=== PATIENT | male | born 1950 | race Caucasian/White ===

== ENCOUNTER → 2017-02-09 | Outpatient (CLI) | payer MEDICARE, OTHER ==
[~2017-02-09] MED LIST: AMIO200T2 PO; APIX2.5T PO; ASPI-983 PO; ASPI-999 PO; ATOR40TA70 PO; COENZYME Q10 PO; GARLIC PO; GINKGO BILOBA PO; ISOS30TA3 PO; KORE100C PO; MANGOSTEEN PO; METO-272 PO; MULT-1029 PO; SAW PALMETTO PO; SENN-109 PO; VITA150T PO; VITAMIN E PO
[2017-02-09 10:03] LABS: BASOPHILS # (AUTO) 0.1 10^3/uL (0.0-0.1); BASOPHILS % (AUTO) 1 % (0-10); EOSINOPHILS # (AUTO) 0.1 10^3/uL (0.0-0.3); EOSINOPHILS % (AUTO) 1 % (0-10); LYMPHOCYTES # (AUTO) 1.2 X 10^3 (1.0-4.0); LYMPHOCYTES % (AUTO) 14 % (12-44); MEAN CORPUSCULAR HEMOGLOBIN 29 PG (25-34); MEAN CORPUSCULAR HGB CONC 32 G/DL (32-36); MEAN CORPUSCULAR VOLUME 90 FL (80-99); MEAN PLATELET VOLUME 9.9 FL (7.4-10.4); MONOCYTES # (AUTO) 0.9 X 10^3 (0.0-1.0); MONOCYTES % (AUTO) 10 % (0-12); NEUTROPHILS # (AUTO) 6.5 X 10^3 (1.8-7.8); NEUTROPHILS % (AUTO) 75 % (42-75); PLATELET COUNT 219 10^3/uL (130-400); RED BLOOD COUNT 4.59 10^6/uL (4.35-5.85); RED CELL DISTRIBUTION WIDTH 14.9 % (10.0-14.5); WHITE BLOOD COUNT 8.7 10^3/uL (4.3-11.0)
[2017-02-09 10:24] LABS: BILIRUBIN,TOTAL 0.5 MG/DL (0.1-1.0); CALCIUM 8.8 MG/DL (8.5-10.1); CREATININE SERUM 1.47 MG/DL (0.60-1.30); MAGNESIUM 2.3 MG/DL (1.8-2.4); POTASSIUM 3.4 MMOL/L (3.6-5.0); TOTAL PROTEIN 6.9 G/DL (6.4-8.2)
[2017-02-09 10:45] LABS: THYROID STIMULATING HORMONE 0.44 UIU/ML (0.35-4.94)
== END ==
LOC: LAB 09:43
PROVIDERS: ATTEND Internal Medicine Cardiovascular Disease
DX: I50.33 Acute on chronic diastolic (congestive) heart failure (principal); I25.10 Atherosclerotic heart disease of native coronary artery without angina pectoris; I10 Essential (primary) hypertension; I48.0 Paroxysmal atrial fibrillation; M79.89 Other specified soft tissue disorders
CPT/HCPCS: 36415; 80053; 83735; 84443; 85025

== ENCOUNTER → 2017-03-10 | Outpatient (CLI) | payer OTHER ==
[2017-03-10 10:44] LABS: CALCIUM 9.4 MG/DL (8.5-10.1); CREATININE SERUM 1.46 MG/DL (0.60-1.30); MAGNESIUM 2.4 MG/DL (1.8-2.4); POTASSIUM 3.4 MMOL/L (3.6-5.0)
== END ==
LOC: LAB 10:02
PROVIDERS: ATTEND Internal Medicine Cardiovascular Disease
DX: I25.10 Atherosclerotic heart disease of native coronary artery without angina pectoris (principal); I10 Essential (primary) hypertension; I48.0 Paroxysmal atrial fibrillation; R06.02 Shortness of breath
CPT/HCPCS: 36415; 80048; 83735

== ENCOUNTER → 2017-03-25 | Outpatient (CLI) | payer MEDICARE, OTHER ==
[2017-03-25 10:34] LABS: CALCIUM 9.7 MG/DL (8.5-10.1); CREATININE SERUM 1.96 MG/DL (0.60-1.30); MAGNESIUM 2.6 MG/DL (1.8-2.4); POTASSIUM 4.1 MMOL/L (3.6-5.0)
== END ==
LOC: LAB 09:51
PROVIDERS: ATTEND Nurse Practitioner Family
DX: I11.0 Hypertensive heart disease with heart failure (principal); I50.32 Chronic diastolic (congestive) heart failure; E87.6 Hypokalemia
CPT/HCPCS: 36415; 80048; 83735

== ENCOUNTER → 2017-04-17 | Outpatient (CLI) | payer OTHER ==
[2017-04-17 09:44] LABS: CALCIUM 9.4 MG/DL (8.5-10.1); CREATININE SERUM 1.79 MG/DL (0.60-1.30); ICTERUS -0.3 (0-1.9); POTASSIUM 4.4 MMOL/L (3.6-5.0)
== END ==
LOC: LAB 09:06
PROVIDERS: ATTEND Nurse Practitioner Family
DX: I25.10 Atherosclerotic heart disease of native coronary artery without angina pectoris (principal); I73.9 Peripheral vascular disease, unspecified; I50.32 Chronic diastolic (congestive) heart failure; I11.0 Hypertensive heart disease with heart failure; M79.89 Other specified soft tissue disorders
CPT/HCPCS: 36415; 80048; 83735

== ENCOUNTER → 2017-04-21 | Outpatient (CLI) | payer OTHER | LOC: RAD 14:39 | PROVIDERS: ATTEND Nurse Practitioner Family | DX: I73.9 Peripheral vascular disease, unspecified (principal); I25.10 Atherosclerotic heart disease of native coronary artery without angina pectoris; I50.32 Chronic diastolic (congestive) heart failure; M79.89 Other specified soft tissue disorders; I10 Essential (primary) hypertension | CPT/HCPCS: 93923 ==

== ENCOUNTER → 2017-05-11 | Outpatient (CLI) | payer MEDICARE ==
[2017-05-11 10:02] LABS: CALCIUM 9.5 MG/DL (8.5-10.1); CREATININE SERUM 1.49 MG/DL (0.60-1.30); MAGNESIUM 2.3 MG/DL (1.8-2.4); POTASSIUM 3.5 MMOL/L (3.6-5.0)
== END ==
LOC: LAB 09:17
PROVIDERS: ATTEND Internal Medicine Cardiovascular Disease
DX: I25.10 Atherosclerotic heart disease of native coronary artery without angina pectoris (principal); E83.41 Hypermagnesemia; M79.89 Other specified soft tissue disorders
CPT/HCPCS: 36415; 80048; 83735

== ENCOUNTER → 2017-06-17 | Outpatient (CLI) | payer MEDICARE ==
[2017-06-17 11:01] LABS: CALCIUM 9.3 MG/DL (8.5-10.1); CREATININE SERUM 1.3 MG/DL (0.60-1.30); MAGNESIUM 2.2 MG/DL (1.8-2.4); POTASSIUM 3.7 MMOL/L (3.6-5.0)
== END ==
LOC: LAB 10:10
PROVIDERS: ATTEND Internal Medicine Cardiovascular Disease
DX: I25.10 Atherosclerotic heart disease of native coronary artery without angina pectoris (principal); I50.32 Chronic diastolic (congestive) heart failure; I10 Essential (primary) hypertension; M79.89 Other specified soft tissue disorders
CPT/HCPCS: 36415; 80048; 83735

== ENCOUNTER → 2017-10-23 | Outpatient (CLI) | payer MEDICARE ==
[~2017-10-23] MED LIST changes: -METO-272 PO; +METO-370 PO
[2017-10-23 10:20] LABS: BASOPHILS # (AUTO) 0.1 10^3/uL (0.0-0.1); BASOPHILS % (AUTO) 1 % (0-10); EOSINOPHILS # (AUTO) 0.2 10^3/uL (0.0-0.3); EOSINOPHILS % (AUTO) 2 % (0-10); LYMPHOCYTES # (AUTO) 1.5 X 10^3 (1.0-4.0); LYMPHOCYTES % (AUTO) 16 % (12-44); MEAN CORPUSCULAR HEMOGLOBIN 29 PG (25-34); MEAN CORPUSCULAR HGB CONC 32 G/DL (32-36); MEAN CORPUSCULAR VOLUME 91 FL (80-99); MONOCYTES # (AUTO) 0.8 X 10^3 (0.0-1.0); MONOCYTES % (AUTO) 9 % (0-12); NEUTROPHILS # (AUTO) 6.4 X 10^3 (1.8-7.8); NEUTROPHILS % (AUTO) 71 % (42-75); PLATELET COUNT 209 10^3/uL (130-400); RED BLOOD COUNT 4.96 10^6/uL (4.35-5.85); RED CELL DISTRIBUTION WIDTH 14.7 % (10.0-14.5)
[2017-10-23 10:34] LABS: ALANINE AMINOTRANSFERASE 20 U/L (0-55); ALBUMIN 4.1 GM/DL (3.2-4.5); ANION GAP 10 MMOL/L (5-14); ASPARTATE AMINO TRANSFERASE 20 U/L (5-34); BILIRUBIN,TOTAL 0.5 MG/DL (0.1-1.0); BLOOD UREA NITROGEN 13 MG/DL (7-18); BUN/CREATININE RATIO 11; CALCIUM 9.4 MG/DL (8.5-10.1); CARBON DIOXIDE 27 MMOL/L (21-32); CHLORIDE 108 MMOL/L (98-107); CHOLESTEROL 116 MG/DL (< 200); DIRECT LDL 49 MG/DL (1-129); GFR ESTIMATED > 60; GLUCOSE 107 MG/DL (70-105); MAGNESIUM 2.2 MG/DL (1.8-2.4); POTASSIUM 3.6 MMOL/L (3.6-5.0); SODIUM 145 MMOL/L (135-145); TRIGLYCERIDES 142 MG/DL (<150); VLDL CHOLESTEROL 28 MG/DL (5-40)
[2017-10-23 10:54] LABS: THYROID STIMULATING HORMONE 0.42 UIU/ML (0.35-4.94)
--- NOTE | 2017-10-23 11:28 | Diagnostic Imaging Report ---
EXAMINATION: PA and lateral views of the chest. INDICATION: Hypertension. Smoking. FINDINGS: The lungs are clear. There is slight pleural thickening suggested in the lateral aspect of the inferior left hemithorax. The heart size is at the upper limits of normal. There is suggestion of a fanbeoet-pd-evick hiatal hernia. No effusion or pneumothorax. The mediastinum and lori appear unremarkable. IMPRESSION: Suggestion of [id number]-[id number]-udspb hiatal hernia. This can be confirmed with the CT chest if needed. Dictated by: Dictated on workstation # [id number]
== END ==
LOC: LAB 09:36
PROVIDERS: ATTEND Internal Medicine Cardiovascular Disease
DX: I25.10 Atherosclerotic heart disease of native coronary artery without angina pectoris (principal); I50.32 Chronic diastolic (congestive) heart failure; I11.0 Hypertensive heart disease with heart failure; I48.0 Paroxysmal atrial fibrillation; E66.8 Other obesity; Z87.891 Personal history of nicotine dependence
CPT/HCPCS: 36415; 71020; 80053; 80061; 83735; 84443; 85025

== ENCOUNTER → 2017-12-08 | Outpatient (CLI) | payer MEDICARE ==
--- NOTE | 2017-12-08 13:21 | Diagnostic Imaging Report ---
INDICATION: Hematuria. FINDINGS: The right kidney is small 6.9 x 2.3 x 2.9 cm. It shows no hydronephrosis and shows no appreciable solid or cystic mass. A right ureteral jet when the bladder was surveilled with color Doppler is not appreciated. The left kidney measures 12.6 cm, normal in size, cortical thickness, and echotexture. Its ureter is confirmed patent with Doppler evaluation of the bladder. IMPRESSION: Small right kidney, unobstructed and normal left kidney. Normal appearance of the bladder. Dictated by: Dictated on workstation # [id number]
== END ==
LOC: RAD 12:29
PROVIDERS: ATTEND Nurse Practitioner Community Health
DX: N27.0 Small kidney, unilateral (principal)
CPT/HCPCS: 76770

== ENCOUNTER 2017-12-24 07:03 | Outpatient (CLI) | payer MEDICARE ==
[~2017-12-24] VITALS: Ht 170.2 cm; Wt 99.1 kg
[2017-12-24] MEDS ORDERED: DILT240C53 PO (10:14)
[2017-12-24] MEDS ORDERED: SENN-1 PO (10:14)
[2017-12-24] MEDS ORDERED: POTA10TA10 PO (10:14)
[2017-12-24] MEDS ORDERED: FURO40TA4 PO (10:14)
[2017-12-24] MEDS ORDERED: ATOR20TA66 PO (10:14)
[2017-12-24] MEDS ORDERED: RUTI1TAB PO (10:14)
== END 2017-12-24 10:31 ==
LOC: PREOP 07:03
PROVIDERS: ATTEND Urology
DX: Z01.818 Encounter for other preprocedural examination (principal); N20.0 Calculus of kidney

== ENCOUNTER 2017-12-30 06:21 | Day surgery (SDC) | payer MEDICARE ==
[~2017-12-30] VITALS: Ht 170.2 cm; Wt 99.1 kg
[~2017-12-30 06:21] MED LIST changes: +ATOR20TA66 PO; +DILT240C53 PO; +FURO40TA4 PO; +POTA10TA10 PO; +RUTI1TAB PO; +SENN-1 PO
--- OUTSIDE RECORDS SUMMARY | 2017-12-30 06:24 | XMS REPORT ---
Author Author ARABELLA SHER [facility] Address [address] [place] [address] Care Team Providers Care Site Controller Name Role Phone ARABELLA SHER Unavailable PROBLEMS Type Condition ICD9-CM Code QZS35-TC Code Onset Dates Condition Status SNOMED Code Problem Slow transit constipation K59.01 Active 29499077 Problem Essential hypertension I10 Active 67951933 Problem Chronic atrial fibrillation I48.2 Active 784425123 Problem Tricuspid valve insufficiency, unspecified etiology I07.1 Active 481632957 Problem Mixed hyperlipidemia E78.2 Active 713750301 ALLERGIES Unknown Allergies SOCIAL HISTORY No smoking Hx information available PLAN OF CARE VITAL SIGNS MEDICATIONS Medication Instructions Dosage Frequency Start Date End Date Duration Status Linzess 145 MCG Orally Once a day 1 capsule 24h Dec, Active RESULTS No Results PROCEDURES No Known procedures IMMUNIZATIONS No Known Immunizations
--- OUTSIDE RECORDS SUMMARY | 2017-12-30 06:25 | XMS REPORT ---
Author Author ARABELLA SHER [facility] Address [address] [place] [address] Care Team Providers Care Professor Of French Name Role Phone ARABELLA SHER Unavailable PROBLEMS Type Condition ICD9-CM Code CEF91-DY Code Onset Dates Condition Status SNOMED Code Problem Slow transit constipation K59.01 Active 41287140 Problem Essential hypertension I10 Active 49070099 Problem Chronic atrial fibrillation I48.2 Active 424574758 Problem Tricuspid valve insufficiency, unspecified etiology I07.1 Active 262946948 Problem Mixed hyperlipidemia E78.2 Active 239731044 ALLERGIES Substance Reaction Event Type Date Status N.K.D.A. Unknown Non Drug Allergy Nov, Unknown SOCIAL HISTORY No smoking Hx information available PLAN OF CARE Activity Details Follow Up prn, Call about results with Ulises Reason: VITAL SIGNS Height 67 in 2016-11-11 Weight 227 lbs 2016-11-11 Temperature 98.0 degrees Fahrenheit 2016-11-11 Heart Rate 78 bpm 2016-11-11 Respiratory Rate 20 2016-11-11 BMI 35.55 kg/m2 2016-11-11 Blood pressure systolic 148 mmHg 2016-11-11 Blood pressure diastolic 80 mmHg 2016-11-11 MEDICATIONS Medication Instructions Dosage Frequency Start Date End Date Duration Status Aspir-Low 81 MG Orally Once a day 1 tablet 24h Active Amiodarone HCl 200 mg Orally Once a day 1 tablet 24h Active Bactrim DS 800-160 MG Orally Twice a day 1 tablet 12h Nov,Nov 10 day(s) Active Isosorbide Mononitrate CR 30 MG Orally Once a day 1 tablet 24h Active Furosemide 40 MG Orally Once a day 1 tablet 24h Active Eliquis 2.5 MG Active Atorvastatin Calcium 40 mg Orally Once a day 1 tablet 24h Active Amlodipine Besylate 10MG TAKE ONE TABLET BY MOUTH ONCE DAILY 30 Active RESULTS No Results PROCEDURES Procedure Date Ordered Related Diagnosis Body Site [facility] VISIT ESTABLISHED PATIENT Nov 11, 2016 Office Visit, Est Pt., Level 3 Nov 11, 2016 IMMUNIZATIONS No Known Immunizations
--- OUTSIDE RECORDS SUMMARY | 2017-12-30 06:25 | XMS REPORT ---
Author Author ARABELLA SHER Organization [employer] Address Unknown Phone Unavailable Care Team Providers Care Machinist Job Setter Name Role Phone ARABELLA SHER CP Unavailable Allergies No Known Allergies Problems No Known Problems Medications Medication Code System Code Instructions Start Date End Date Status Dosage Aspir-Low [facility] [address]-51 81 MG Orally Once a day 1 tablet Perindopril Arg-Amlodipine [facility] [address]-01 10 mg Orally Once a day 1 tablet Amiodarone HCl [facility] [address]-82 200 mg Orally Once a day 1 tablet Atorvastatin Calcium [facility] [address]-78 40 mg Orally Once a day 1 tablet Clopidogrel Bisulfate [facility] [address]-32 75 MG Orally Once a day 1 tablet Isosorbide Mononitrate CR [facility] [address]-37 30 MG Orally Once a day 1 tablet Results No Known Results Summary Purpose [employer] Submission
[2017-12-30] MEDS ORDERED: LACTATED RINGERS 1,000 ML IV PRN (07:10)
[2017-12-30] MEDS ORDERED: cefTRIAXone INJECTION 1,000 MG in NS (IVPB) 50 ML IV ONE (07:15)
[2017-12-30] MEDS ORDERED: CATHETER FLUSH 10 ML SYR IV PRN (07:15)
[2017-12-30] MEDS ORDERED: cefTRIAXone 1 GM/NS 50 ML IVPB IV ONE ×2 (07:15)
--- NOTE | 2017-12-30 07:22 | Progress Note-Pre Operative ---
Pre-Operative Progress Note H&P Reviewed The H&P was reviewed, patient examined and no changes noted. Date Seen by Provider: Dec 30, 2017 Time Seen by Provider: 07:22 Date H&P Reviewed: Dec 30, 2017 Time H&P Reviewed: 07:22 Pre-Operative Diagnosis: LT PROXIMAL URETERAL AND BILATERAL RENAL STONES DARRIAN DANIEL MD Dec 30, 2017 7:22 am
--- NOTE | 2017-12-30 07:23 | Progress Note-Post Operative ---
Post-Operative Progess Note Surgeon (s)/Border Police (s) Surgeon DARRIAN DANIEL MD Border Police: N/A Pre-Operative Diagnosis LT PROXIMAL URETERAL AND BILATERAL RENAL STONES Post-Operative Diagnosis SAME Procedure & Operative Findings Date of Procedure 12/30/17 Procedure Performed/Findings LT ESWL Anesthesia Type GENERAL Estimated Blood Loss Estimated blood loss (mL): N/A Specimens/Packing Specimens Removed N/A Packing: N/A DARRIAN DANIEL MD Dec 30, 2017 7:23 am
--- NOTE | 2017-12-30 07:25 | Discharge Inst-Urology ---
Discharge Inst-Urology Discharge Medications New, Converted, or Re-newed RX: RX on Chart Patient Instructions/Follow Up Plan Please make appointment to been seen in office Thursday 01/11, KUB prior to it KUB on way home Post ESWL instructions Increase oral fluids for 48 hours and then as needed. Diet and Activity as tolerated. If questions or concerns contact your physician Or seek help at emergency department. DARRIAN DANIEL MD Dec 30, 2017 7:25 am
--- NOTE | 2017-12-30 07:42 | Diagnostic Imaging Report ---
INDICATION: Nephrolithiasis KUB at 7:24 AM There are several opacities projecting over both kidneys consistent with calculi. Largest of these is in the region of left UPJ which measures 16 x 8 mm. The bowel gas pattern is normal. IMPRESSION: Bilateral nephrolithiasis. Largest stone is at the left UPJ. Dictated by: Dictated on workstation # [id number]
[2017-12-30 07:51] VITALS: BP 156/75
[2017-12-30] MEDS ORDERED: LIDOCAINE PF 2% 5 ML (XYLOCAINE) VIAL ONE (08:13)
[2017-12-30] MEDS ORDERED: fentaNYL INJECTION 100 MCG/2 ML AMP ONE (08:13)
[2017-12-30] MEDS ORDERED: ONDANSETRON 4 MG/2 ML (SDV) Z0FRAN ONE (08:13)
[2017-12-30] MEDS ORDERED: SEVOFLURANE (ULTANE) 15 ML INHAL SOLN ONE (08:13)
[2017-12-30] MEDS ORDERED: proPOfol 200 MG/20 ML (DIPRIVAN) VIAL IV ONE (08:13)
[2017-12-30] MEDS ORDERED: DEXAMETHASONE 10 MG/ML (DECADRON) 1 ML VIAL ONE (08:13)
[2017-12-30] MEDS ORDERED: MIDAZOLAM 2 MG/2 ML (VERSED) VIAL ONE (08:14)
[2017-12-30] MEDS ORDERED: FUROSEMIDE 40 MG/4 ML INJ (LASIX) ONE (09:09)
[2017-12-30] MEDS ORDERED: KETOROLAC 30 MG/ML VIAL ONE (09:09)
[2017-12-30] MEDS ORDERED: ONDANSETRON 4 MG/2 ML (SDV) Z0FRAN IVP PRN (09:15)
[2017-12-30] MEDS ORDERED: morphine INJ 10 MG/ML 1ML (SYR OR VIAL) IVP PRN (09:15)
[2017-12-30 10:05] VITALS: BP 137/76
[2017-12-30] MEDS ORDERED: NITR-65 PO (10:27)
[2017-12-30] MEDS ORDERED: TAMS0.4C98 PO (10:27)
[2017-12-30] MEDS ORDERED: HYDR-3875 PO (10:27)
[2017-12-30 10:35] VITALS: BP 139/80
--- NOTE | 2017-12-30 10:40 | Anesthesia-General Post-Op ---
General Patient Condition Mental Status/LOC: Same as Preop Cardiovascular: Satisfactory Nausea/Vomiting: Absent Respiratory: Satisfactory Pain: Controlled Complications: Absent Post Op Complications Complications None Follow Up Care/Instructions Patient Instructions None needed. Anesthesia/Patient Condition Patient Condition Patient is doing well, no complaints, stable vital signs, no apparent adverse anesthesia problems. No complications reported per nursing. GIOVANA NULL CRNA Dec 30, 2017 10:40
[2017-12-30 11:05] VITALS: BP 146/87
--- NOTE | 2017-12-30 11:19 | Diagnostic Imaging Report ---
INDICATION: Status post ESWL. COMPARISON: 12/30/2017 FINDINGS: Single supine radiographic view of the abdomen was obtained status post ESWL. The large calculus seen at the left UPJ on the prior exam shows interval fragmentation. Multiple small fragmented calculi are also seen extending into the left renal pelvis and inferior pole of the left kidney. Additional renal calculi are also seen, bilaterally. No unexpected radiopaque foreign bodies are seen. Small bowel loops are nondistended. IMPRESSION: 1. Multiple fragmented calculi are now noted within the left renal pelvis extending into the inferior pole calyx consistent with interval ESWL. 2. Additional bilateral nephrolithiasis. Dictated by: Dictated on workstation # [id number]
[2017-12-30 11:20] VITALS: BP 146/87
[2017-12-30 11:36] VITALS: BP 139/80
--- NOTE | 2017-12-30 13:37 | OPERATIVE REPORT ---
DATE OF SERVICE: 12/30/2017 PREOPERATIVE DIAGNOSES: 1. Left proximal ureteral stone. 2. Bilateral renal stones. POSTOPERATIVE DIAGNOSES: 1. Left proximal ureteral stone. 2. Bilateral renal stones. OPERATION PERFORMED: ESWL left ureteral proximal stone. SURGEON: Martir Daniel MD. ANESTHESIA: General. COMPLICATIONS: None. DESCRIPTION OF PROCEDURE: Under satisfactory general anesthesia, the patient in supine position on the ESWL table, the left proximal ureteral stone was localized. Shocks were delivered at a kV of 6, 3000 shocks seemed to have fragmented the stone nicely. The patient received 40 mg of Lasix and 30 mg of Toradol IV at the end of the procedure. He tolerated the procedure and anesthesia well and was sent to recovery room in stable condition. Job ID: [id number] DocumentID: [id number] Dictated Date: 12/30/2017 08:55:41 Clubhouse Attendant Date: 12/30/2017 13:37:15 Dictated By: MARTIR DANIEL MD
== END 2017-12-30 11:20 | disposition home or self-care (01) ==
LOC: SDC 06:21
PROVIDERS: ATTEND Urology
DX: N20.1 Calculus of ureter (principal); N20.0 Calculus of kidney; Z11.2 Encounter for screening for other bacterial diseases; I25.10 Atherosclerotic heart disease of native coronary artery without angina pectoris; I50.9 Heart failure, unspecified; I11.0 Hypertensive heart disease with heart failure; I48.0 Paroxysmal atrial fibrillation; E78.00 Pure hypercholesterolemia, unspecified; E78.5 Hyperlipidemia, unspecified; I73.9 Peripheral vascular disease, unspecified; Z79.82 Long term (current) use of aspirin; Z79.01 Long term (current) use of anticoagulants; Z87.891 Personal history of nicotine dependence; F32.9 Major depressive disorder, single episode, unspecified; F41.9 Anxiety disorder, unspecified; Z79.899 Other long term (current) drug therapy
CPT/HCPCS: 74018; 87081; 93005

== ENCOUNTER → 2018-01-04 | Outpatient (CLI) | payer MEDICARE ==
[~2018-01-04] MED LIST changes: +HYDR-3875 PO; +NITR-65 PO; +TAMS0.4C98 PO
--- NOTE | 2018-01-04 10:06 | Diagnostic Imaging Report ---
PROCEDURE: CT abdomen and pelvis without contrast. TECHNIQUE: Multiple contiguous axial images were obtained through the abdomen and pelvis without the use of intravenous contrast. INDICATION: Renal calculi and left ureteral calculi. This study is performed for further characterization. COMPARISON: Correlation is made with the abdominal radiograph from 12/30/2017. FINDINGS: The lung bases are clear. No discrete liver mass is identified. The gallbladder is unremarkable. The pancreas and spleen are unremarkable. No adrenal mass is identified. The right kidney is atrophic. There are multiple calcific densities in the right kidney, perhaps nonobstructing calculi. No hydronephrosis or hydroureter is detected. Left kidney does contain multiple stones. There is an 11 mm x 6 mm stone in the mid left kidney. There is also a 11 mm stone lower pole calyx of left kidney. There is moderate hydroureteronephrosis. The dilated left ureter is traced into the pelvis where there are multiple stones present just proximal to the UVJ, in aggregate measuring approximately 20 mm x 8 mm. No definite bladder calculi are identified. The aorta is heavily calcified and ectatic. No aneurysm is identified. The small and large bowel loops are normal caliber. There is no ascites. No lymphadenopathy is seen. The prostate is unremarkable. IMPRESSION: 1. Right renal atrophy. There is bilateral nonobstructing nephrolithiasis. There is also multiple stones in the distal left ureter producing moderate hydroureteronephrosis. Dictated by: Dictated on workstation # [id number]
== END ==
LOC: RAD 09:28
PROVIDERS: ATTEND Urology
DX: N13.2 Hydronephrosis with renal and ureteral calculous obstruction (principal); N26.1 Atrophy of kidney (terminal)
CPT/HCPCS: 74176

== ENCOUNTER → 2018-01-11 | Outpatient (CLI) | payer MEDICARE ==
[~2018-01-11] MED LIST changes: +CIPR-225 PO
== END ==
LOC: PREOP 01-06 05:31
PROVIDERS: ATTEND Urology
DX: Z01.818 Encounter for other preprocedural examination (principal); N20.2 Calculus of kidney with calculus of ureter

== ENCOUNTER 2018-01-12 05:48 | Day surgery (SDC) | payer MEDICARE ==
[~2018-01-12] VITALS: Ht 170.2 cm; Wt 99.1 kg
[~2018-01-12 05:48] MED LIST changes: -CIPR-225 PO
--- NOTE | 2018-01-12 07:11 | Diagnostic Imaging Report ---
INDICATION: Lithotripsy. COMPARISON: 12/30/2017. FINDINGS: Bilateral renal calculi present. The largest measures 11 mm on the left. Numerous mineralizations in the pelvis are likely phlebolith. However, distal ureteral stones cannot be excluded by radiography. Nonobstructive bowel gas pattern. Normal regional skeleton. IMPRESSION: Bilateral renal calculi. Dictated by: Dictated on workstation # [id number]
--- NOTE | 2018-01-12 07:23 | Progress Note-Pre Operative ---
Pre-Operative Progress Note H&P Reviewed The H&P was reviewed, patient examined and no changes noted. Date Seen by Provider: Jan 12, 2018 Time Seen by Provider: 07:22 Date H&P Reviewed: Jan 12, 2018 Time H&P Reviewed: 07:22 Pre-Operative Diagnosis: LT DISTAL URETERAL AND BILATERAL RENAL STONES DARRIAN DANIEL MD Jan 12, 2018 7:23 am
[2018-01-12 08:20] VITALS: BP 159/81
[2018-01-12] MEDS: LACTATED RINGERS 1,000 ML IV PRN ×2 (08:20→11:48)
[2018-01-12] MEDS ORDERED: cefTRIAXone 1 GM/NS 100 ML IVPB IV ONE ×2 (08:45)
[2018-01-12] MEDS ORDERED: CATHETER FLUSH 10 ML SYR IV PRN (08:45)
[2018-01-12] MEDS ORDERED: NEOSTIGMINE 1 MG/ML 5 ML SYRINGE ONE ×2 (09:28→10:37)
[2018-01-12] MEDS ORDERED: GLYCOPYRROLATE 0.2 MG/ML (ROBINUL) 2 ML VIAL ONE ×2 (09:28→10:37)
[2018-01-12] MEDS ORDERED: ONDANSETRON 4 MG/2 ML (SDV) Z0FRAN ONE (09:28)
[2018-01-12] MEDS ORDERED: SEVOFLURANE (ULTANE) 15 ML INHAL SOLN ONE ×6 (09:28→10:39)
[2018-01-12] MEDS ORDERED: proPOfol 200 MG/20 ML (DIPRIVAN) VIAL IV ONE (09:28)
[2018-01-12] MEDS ORDERED: fentaNYL INJECTION 100 MCG/2 ML AMP ONE (09:28)
[2018-01-12] MEDS ORDERED: DEXAMETHASONE 10 MG/ML (DECADRON) 1 ML VIAL ONE (09:28)
[2018-01-12] MEDS ORDERED: KETOROLAC 30 MG/ML VIAL ONE (09:28)
[2018-01-12] MEDS ORDERED: MIDAZOLAM 2 MG/2 ML (VERSED) VIAL ONE (09:28)
[2018-01-12] MEDS ORDERED: LIDOCAINE PF 2% 5 ML (XYLOCAINE) VIAL ONE (09:28)
[2018-01-12] MEDS ORDERED: ROCURONIUM 10 MG/ML 5 ML SYRINGE IV ONE (10:25)
[2018-01-12] MEDS ORDERED: FUROSEMIDE 40 MG/4 ML INJ (LASIX) ONE (10:39)
--- NOTE | 2018-01-12 10:46 | Progress Note-Post Operative ---
Post-Operative Progess Note Surgeon (s)/Electronic Sales And Service Technician (s) Surgeon DARRIAN DANIEL MD Electronic Sales And Service Technician: N/A Pre-Operative Diagnosis LT DISTAL URETERAL AND BILATERAL RENAL STONES Post-Operative Diagnosis SAME Procedure & Operative Findings Date of Procedure 01/12/18 Procedure Performed/Findings LT URETEROSCOPY WITH ATTEMPTED LITHOTRIPSY AND LT ESWL Anesthesia Type GENERAL Estimated Blood Loss Estimated blood loss (mL): N/A Specimens/Packing Specimens Removed N/A Packing: N/A DARRIAN DANIEL MD Jan 12, 2018 10:46 am
--- NOTE | 2018-01-12 10:48 | Discharge Inst-Urology ---
Discharge Inst-Urology Discharge Medications New, Converted, or Re-newed RX: RX on Chart Patient Instructions/Follow Up Plan Please make appointment to been seen in office 01/25, ELISEO prior to it KUHung on way home Post ESWL instructions Increase oral fluids for 48 hours and then as needed. Diet and Activity as tolerated. If questions or concerns contact your physician Or seek help at emergency department. DARRIAN DANIEL MD Jan 12, 2018 10:48 am
[2018-01-12] MEDS ORDERED: PHENYLEPHRINE 100 MCG/ML 10 ML (ANESTHESIA) SYR ONE (10:52)
[2018-01-12] MEDS ORDERED: MEPERIDINE (DEMEROL) INJ 50 MG/ML IVP PRN (11:30)
[2018-01-12] MEDS ORDERED: morphine INJ 10 MG/ML 1ML (SYR OR VIAL) IVP PRN (11:30)
[2018-01-12] MEDS ORDERED: ONDANSETRON 4 MG/2 ML (SDV) Z0FRAN IVP PRN (11:30)
[2018-01-12 12:20] VITALS: BP 178/89
[2018-01-12 12:50] VITALS: BP 155/89
[2018-01-12] MEDS ORDERED: TAMS0.4C98 PO (13:19)
[2018-01-12] MEDS ORDERED: HYDR-3875 PO (13:19)
[2018-01-12] MEDS ORDERED: CIPR-225 PO (13:19)
--- NOTE | 2018-01-12 13:30 | Anesthesia-General Post-Op ---
General Patient Condition Mental Status/LOC: Same as Preop Cardiovascular: Satisfactory Nausea/Vomiting: Absent Respiratory: Satisfactory Pain: Controlled Complications: Absent Post Op Complications Complications None Follow Up Care/Instructions Patient Instructions None needed. Anesthesia/Patient Condition Patient Condition Patient was seen prior to discharge. He had some initial nausea but improved and was doing well, no complaints, stable vital signs, no apparent adverse anesthesia problems. DAYAMI MURILLO DO Jan 12, 2018 13:30
--- NOTE | 2018-01-12 13:59 | Diagnostic Imaging Report ---
INDICATION: Lithotripsy. EXAMINATION: KUB at 2 PM. FINDINGS: There are several small radiopaque fragments projecting over the lower pole of the right kidney. There are some calculi projecting over the inferior pole of the left kidney. There is a calcification projecting near the left ureterovesical junction. IMPRESSION: Bilateral nephrolithiasis. Questionable left ureteral calculus. Dictated by: Dictated on workstation # [id number]
[2018-01-12 14:00] VITALS: BP 155/89
--- NOTE | 2018-01-12 16:41 | OPERATIVE REPORT ---
DATE OF SERVICE: 01/12/2018 PREOPERATIVE DIAGNOSES: 1. Left distal ureteral stones. 2. Bilateral renal stones. 3. Atrophic right kidney. POSTOPERATIVE DIAGNOSES: 1. Left distal ureteral stones. 2. Bilateral renal stones. 3. Atrophic right kidney. 4. Benign prostatic hypertrophy. OPERATION PERFORMED: Left ureteroscopy with attempted lithotripsy and left ESWL. SURGEON: Martir Daniel MD. ANESTHESIA: General. COMPLICATIONS: None. DESCRIPTION OF PROCEDURE: Under satisfactory general anesthesia, the patient in lithotomy position in the cystoscopy suite, genitalia were prepped and draped in the usual sterile fashion. Cystoscope was introduced under vision. The anterior urethra was normal. The prostate revealed enlargement of the lateral lobe and high riding median bar. There was good manipulation, I was able to enter the bladder, which revealed trabeculation. The ureteric orifices were normal in shape; however, displaced upward and laterally. There was clear efflux, sluggish on the left side. No foreign body bladder tumor stone visualized. Using the foroblique lens, I dilated the left ureteral orifice intramural portion to the level of the stone to accommodate a 6.9-Anguillan semi-rigid ureteroscope. However, because of the curve of the ureter, most probably a kind of a fishhook deformity, I could not get the stone to be in direct straight contact with the lithoclast fiber. I could just touch the lower part of it. I did not want the stone to go back to the kidney, so I discontinued further attempt, removed the ureteroscope and inserted a 16-Anguillan Roy catheter to drain the bladder, moved the patient on ESWL table in supine. The left distal ureteral stone was localized. Shocks were delivered at kV of 6. A total of 3000 shocks completely fragment the stone. The patient received 40 mg of Lasix and 30 mg of Toradol IV at the end of the procedure. He tolerated the procedure and anesthesia well and was sent to recovery room in stable condition. Job ID: [id number] DocumentID: [id number] Dictated Date: 01/12/2018 10:59:10 Ostomy Rn Date: 01/12/2018 16:41:17 Dictated By: MARTIR DANIEL MD
== END 2018-01-12 14:00 | disposition home or self-care (01) ==
LOC: SDC 05:48
PROVIDERS: ATTEND Urology
DX: N20.2 Calculus of kidney with calculus of ureter (principal); N26.1 Atrophy of kidney (terminal); N40.0 Benign prostatic hyperplasia without lower urinary tract symptoms; I25.10 Atherosclerotic heart disease of native coronary artery without angina pectoris; I11.0 Hypertensive heart disease with heart failure; I50.9 Heart failure, unspecified; E78.00 Pure hypercholesterolemia, unspecified; I73.9 Peripheral vascular disease, unspecified; I48.0 Paroxysmal atrial fibrillation; F17.210 Nicotine dependence, cigarettes, uncomplicated; Z79.899 Other long term (current) drug therapy
CPT/HCPCS: 74018; 87081

== ENCOUNTER → 2018-01-25 | Outpatient (CLI) | payer MEDICARE ==
[~2018-01-25] MED LIST changes: +CIPR-225 PO
--- NOTE | 2018-01-25 17:50 | Diagnostic Imaging Report ---
INDICATION: Status post lithotripsy. TIME OF EXAM: 3:38 PM COMPARISON: Correlation is made with prior exam from 01/12/2018. FINDINGS: Calcific densities overlie both renal shadows consistent with renal calculi. There are now two calculi located within the distribution of the left ureter. Smaller calculus projects just below the left L3 transverse process measuring 3-4 mm in size. There is a larger calculus at the level of the L4 transverse process on the left measuring 11 x 6 mm. Pelvic calcifications are present. There is a elongated calcific density in the medial aspect of the left hemipelvis which could potentially be located in the distal left ureter at the UVJ. This measures approximately 10 mm x 3 mm. IMPRESSION: Bilateral renal calculi. There are now numerous calculi in the distribution of the left ureter, as described above. Dictated by: Dictated on workstation # [id number]
== END ==
LOC: RAD 15:11
PROVIDERS: ATTEND Urology
DX: N20.2 Calculus of kidney with calculus of ureter (principal)
CPT/HCPCS: 74018

== ENCOUNTER → 2018-01-26 | Outpatient (CLI) | payer MEDICARE | LOC: PREOP 05:42 | PROVIDERS: ATTEND Urology | DX: Z01.818 Encounter for other preprocedural examination (principal); N20.1 Calculus of ureter; N20.0 Calculus of kidney ==

== ENCOUNTER 2018-01-27 05:48 | Day surgery (SDC) | payer MEDICARE ==
[~2018-01-27] VITALS: Ht 170.2 cm; Wt 99.1 kg
[2018-01-27 06:30] VITALS: BP 173/98
[2018-01-27] MEDS ORDERED: cefTRIAXone INJECTION 1,000 MG in NS (IVPB) 100 ML IV ONE (06:45)
--- NOTE | 2018-01-27 06:59 | Progress Note-Pre Operative ---
Pre-Operative Progress Note H&P Reviewed The H&P was reviewed, patient examined and no changes noted. Date Seen by Provider: Jan 27, 2018 Time Seen by Provider: 06:59 Date H&P Reviewed: Jan 27, 2018 Time H&P Reviewed: 06:59 Pre-Operative Diagnosis: LEFT URETERAL STONES DARRIAN DANIEL MD Jan 27, 2018 6:59 am
[2018-01-27] MEDS ORDERED: CATHETER FLUSH 10 ML SYR IV PRN (07:30)
[2018-01-27] MEDS: LACTATED RINGERS 1,000 ML IV PRN ×3 (07:40→11:22)
--- NOTE | 2018-01-27 08:35 | Diagnostic Imaging Report ---
INDICATION: Renal stones. TIME OF EXAMINATION: 07:02 a.m. COMPARISON: Correlation is made with prior study from two days earlier. FINDINGS: Calcific density overlying the lower pole of left kidney is again noted unchanged. Calculi noted in the proximal left ureter again noted. The smaller more proximal calculus has progressed slightly and is near the larger calculus in the mid left ureter. In addition, the elongated calculus in the region of the distal left ureter is unchanged in position. The bowel gas pattern is unremarkable. IMPRESSION: Left-sided renal and ureteral calculi, similar to the examination from two days earlier. Dictated by: Dictated on workstation # [id number]
[2018-01-27] MEDS ORDERED: SEVOFLURANE (ULTANE) 15 ML INHAL SOLN ONE ×5 (08:45→12:13)
[2018-01-27] MEDS ORDERED: LIDOCAINE PF 2% 5 ML (XYLOCAINE) VIAL ONE (08:45)
[2018-01-27] MEDS ORDERED: fentaNYL INJECTION 100 MCG/2 ML AMP ONE (08:45)
[2018-01-27] MEDS ORDERED: proPOfol 200 MG/20 ML (DIPRIVAN) VIAL IV ONE (08:45)
[2018-01-27] MEDS ORDERED: ONDANSETRON 4 MG/2 ML (SDV) Z0FRAN ONE (08:45)
[2018-01-27] MEDS ORDERED: MIDAZOLAM 2 MG/2 ML (VERSED) VIAL ONE (08:45)
--- NOTE | 2018-01-27 10:08 | Progress Note-Post Operative ---
Post-Operative Progess Note Surgeon (s)/Electric Drill Operator (s) Surgeon DARRIAN DANIEL MD Electric Drill Operator: N/A Pre-Operative Diagnosis LEFT URETERAL AND RENAL STONES Post-Operative Diagnosis SAME Procedure & Operative Findings Date of Procedure 01/27/18 Procedure Performed/Findings LT URETEROSCOPY WITH STONE LITHOTRIPSY, INSERTION OF JJ STENT AND LT ESWL Anesthesia Type GENERAL Estimated Blood Loss Estimated blood loss (mL): N/A Specimens/Packing Specimens Removed N/A Packing: N/A DARRIAN DANIEL MD Jan 27, 2018 10:07 am
--- NOTE | 2018-01-27 10:10 | Discharge Inst-Urology ---
Discharge Inst-Urology Discharge Medications New, Converted, or Re-newed RX: RX on Chart Patient Instructions/Follow Up Plan Please make appointment to been seen in office Thursday 02/08, KUB prior to it KUB on way home Post ESWL instructions Increase oral fluids for 48 hours and then as needed. Diet and Activity as tolerated. If questions or concerns contact your physician Or seek help at emergency department. DARRIAN DANIEL MD Jan 27, 2018 10:10 am
[2018-01-27] MEDS ORDERED: ROCURONIUM 10 MG/ML 5 ML SYRINGE IV ONE (10:23)
[2018-01-27] MEDS ORDERED: FUROSEMIDE 40 MG/4 ML INJ (LASIX) ONE (10:36)
[2018-01-27] MEDS ORDERED: KETOROLAC 30 MG/ML VIAL ONE (10:36)
[2018-01-27] MEDS ORDERED: GLYCOPYRROLATE 0.2 MG/ML (ROBINUL) 2 ML VIAL ONE (11:52)
[2018-01-27] MEDS ORDERED: NEOSTIGMINE 1 MG/ML 5 ML SYRINGE ONE (11:52)
[2018-01-27] MEDS ORDERED: ONDANSETRON 4 MG/2 ML (SDV) Z0FRAN IVP PRN (12:15)
[2018-01-27] MEDS ORDERED: morphine INJ 10 MG/ML 1ML (SYR OR VIAL) IVP PRN (12:15)
[2018-01-27 13:00] VITALS: BP 174/105
[2018-01-27 13:01] VITALS: BP 174/105
[2018-01-27 13:30] VITALS: BP 171/102
[2018-01-27 14:00] VITALS: BP 151/87
--- NOTE | 2018-01-27 14:18 | Diagnostic Imaging Report ---
INDICATION: Status post lithotripsy and stent placement. Time of exam 2:23 PM Correlation is made with prior radiographs from earlier same date. Left-sided renal and ureteral calculi are again noted. There appears to be slight fragmentation of left mid ureteric calculus, status post lithotripsy. There has been placement of a left-sided ureteral stent. Distal left ureteric calculus is unchanged in position. IMPRESSION: Left-sided stent placement, as described. Dictated by: Dictated on workstation # [id number]
--- NOTE | 2018-01-28 01:59 | OPERATIVE REPORT ---
DATE OF SERVICE: 01/27/2018 PREOPERATIVE DIAGNOSIS: Left ureteral and renal stones. POSTOPERATIVE DIAGNOSIS: Left ureteral and renal stones. OPERATION PERFORMED: Left ureteroscopy with stone lithotripsy, insertion of left double-J stent and ESWL. SURGEON: Martir Daniel MD ANESTHESIA: General. COMPLICATIONS: None. DESCRIPTION OF PROCEDURE: Under satisfactory general anesthesia, the patient in lithotomy position in the cystoscopy suite, the genitalia were prepped and draped in the usual sterile fashion. A 23-Citizen [place] cystoscope was introduced under vision. The anterior urethra was normal. The prostate revealed trilobar enlargement with a median bar. The bladder was entered and revealed trabeculations. Ureteric orifices displaced upward and laterally. There was clear efflux, sluggish on the left side. No foreign body, bladder tumor or stone visualized. Using the foroblique lens, I dilated the left ureteral orifice since the stone was sitting in the intramural portion to accommodate a 6.9 Citizen [place] semi-rigid ureteroscope . I visualized the stone that was floating. I used the lithoclast to start breaking the stone; however, the stone started migrating upward and I discontinued further attempt to remove the ureteroscope and reinserted the cystoscope, passed a 6-Citizen [place] 26 cm double-J stent guided fluoroscopically all the way to the left renal pelvis, removed the guidewire and the stent was seen draining nicely, approximated fluoroscopically and distal endoscopically. The bladder was evacuated. Cystoscope was removed. The patient was moved on the ESWL table. First, we localized the more distal stone that was changed and migrated upward, delivered 2500 shocks at a kV of 6 with good fragmentation. Then, we went and localized the more proximal stone and again delivered shocks at kV of 6 for a total of 3000 shocks that seemed to have fragmented the stone well. The patient received 40 mg of Lasix and 30 mg of Toradol IV at the end of the procedure. He tolerated the procedure and anesthesia well and was sent to recovery room in stable condition. Job ID: [id number] DocumentID: [id number] Dictated Date: 01/27/2018 11:47:53 Earthmoving Plant Operator Date: 01/27/2018 18:05:32 Dictated By: MARTIR DANIEL MD
== END 2018-01-27 14:35 | disposition home or self-care (01) ==
LOC: SDC 05:48
PROVIDERS: ATTEND Urology
DX: N20.1 Calculus of ureter (principal); N20.0 Calculus of kidney; I25.10 Atherosclerotic heart disease of native coronary artery without angina pectoris; I50.9 Heart failure, unspecified; I48.0 Paroxysmal atrial fibrillation; E78.00 Pure hypercholesterolemia, unspecified; I73.9 Peripheral vascular disease, unspecified; Z79.899 Other long term (current) drug therapy; Z79.82 Long term (current) use of aspirin
CPT/HCPCS: 74018; 87081

== ENCOUNTER → 2018-02-08 | Outpatient (CLI) | payer MEDICARE ==
--- NOTE | 2018-02-08 16:31 | Diagnostic Imaging Report ---
INDICATION: Left renal stone, status post stent placement. TIME OF EXAM: 2:32 PM COMPARISON: Correlation is made with prior study from 01/27/2018. FINDINGS: A left double-J nephroureteral stent remains in place. The stone adjacent to the stent and region of the mid left ureter remains in place. There is also stone along the distal aspect of the stent near the UVJ, similar location. A large stone overlying the lower pole left kidney is unchanged. Calcific densities in the right abdomen are unchanged as well. Bowel gas pattern is unremarkable. IMPRESSION: Overall stable appearance to the abdomen and left-sided urinary tract calculi when compared with examination from 01/27/2018. Dictated by: Dictated on workstation # [id number]
== END ==
LOC: RAD 14:04
PROVIDERS: ATTEND Urology
DX: N20.0 Calculus of kidney (principal); Z96.0 Presence of urogenital implants
CPT/HCPCS: 74018